=== PATIENT | male | born 1960 | race Two or more races ===

== ENCOUNTER 2016-10-19 12:49 | Emergency (ER) | payer OTHER ==
[~2016-10-19] VITALS: Ht 160 cm; Wt 67.9 kg
[2016-10-19] MEDS ORDERED: SODIUM CHLORIDE FLUSH 10ML SYR IVF ONE (14:00)
[2016-10-19 14:29] LABS: ASPARTATE AMINO TRANSFERASE 10 U/L (15-37); BLOOD UREA NITROGEN 15 mg/dL (7-18)
[2016-10-19 14:35] LABS: IS PT STATUS REG ER OR PRE ER? YES
[2016-10-19 15:02] VITALS: BP 123/74
== END 2016-10-19 15:53 | disposition home or self-care (01) ==
LOC: ED 15:47
DX: G51.0 Bell's palsy (principal); E11.65 Type 2 diabetes mellitus with hyperglycemia; F17.210 Nicotine dependence, cigarettes, uncomplicated
CPT/HCPCS: 36415; 70450; 71010; 80053; 84484; 85025; 93005; 99285